=== PATIENT | male | born 1995 | race African-American/Black ===

== ENCOUNTER 2023-01-23 08:53 | Emergency (ER) | payer OTHER ==
--- NOTE | 2023-01-23 09:17 | RAD REPORT ---
EXAM DESCRIPTION: CT - Head Brain Wo Cont - 01/23/2023 9:08 am CLINICAL HISTORY: trauma, left eye swelling Pain and swelling. COMPARISON: Facial Bones W/ Mpr dated 01/23/2023 TECHNIQUE: All CT scans are performed using dose optimization technique as appropriate and may inclu de automated exposure control or mA/KV adjustment according to patient size. FINDINGS: No intracranial hemorrhage, hydrocephalus or extra-axial fluid collection.No areas of brai n edema or evidence of midline shift. Hyperdensity and volume loss seen affecting the left lobe with moderate preseptal soft tissue swellin g. This suggests left globe rupture. The calvarium is intact. IMPRESSION: Findings likely indicate left globe rupture.
--- NOTE | 2023-01-23 09:22 | RAD REPORT ---
EXAM DESCRIPTION: CT - CTFB CLINICAL HISTORY: left eye trauma and swelling Pain and swelling COMPARISON: No comparisons TECHNIQUE: Axial 2 mm thick images of the face were obtained with sagittal and coronal reconstructio n images. All CT scans are performed using dose optimization technique as appropriate and may include automated exposure control or mA/KV adjustment according to patient size. FINDINGS: No acute facial bone fracture is seen.The mandible is intact. Significant left globe hyperdensity in volume loss is present of moderate preseptal swelling. This li truman indicates orbital rupture.The paranasal sinuses and mastoids are clear. IMPRESSION: Findings are most compatible with left-sided orbital rupture. No evidence of a fracture.
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
[2023-01-23] MEDS ORDERED: ONDANSETRON 4 MG/2 ML VIAL ONE (09:52)
[2023-01-23] MEDS ORDERED: MORPHINE 4 MG/ML SYR ONE (09:52)
[2023-01-23] MEDS ORDERED: CEFAZOLIN SODIUM 1 GM/VIAL ONE (09:52)
[2023-01-23] MEDS ORDERED: NA CHLORIDE 0.9% 250 ML ONE (09:52)
[2023-01-23] MEDS ORDERED: TDAP (DIPHTH,PERTUSS(ACELL),TET VAC) 0.5 ML VIAL IMVAC ONE (09:53)
[2023-01-23 13:34] VITALS: TEMP 98.7
[2023-01-23 13:52] VITALS: BP 119/78; O2SAT 93
== END 2023-01-23 13:08 | disposition short-term general hospital (02) ==
LOC: ER 08:53
DX: S05.32XA Ocular laceration without prolapse or loss of intraocular tissue, left eye, initial encounter (principal); Y04.2XXA Assault by strike against or bumped into by another person, initial encounter; Y93.9 Activity, unspecified; Y92.148 Other place in prison as the place of occurrence of the external cause; E11.9 Type 2 diabetes mellitus without complications; I10 Essential (primary) hypertension; Z23 Encounter for immunization
CPT/HCPCS: 96365; 70450; 70486; 76377; 90471; 96375; 99285; 96366; J2405; J0690; J7050